=== PATIENT | female | born 1975 | race Caucasian/White ===

== ENCOUNTER 2017-03-19 17:56 | Emergency (ER) | payer MEDICAID, OTHER ==
[~2017-03-19] VITALS: Ht 154.9 cm; Wt 62.8 kg
[2017-03-19 18:08] VITALS: BP 145/92
--- NOTE | 2017-03-19 19:34 | NUR ---
41Y F BIB FAMILY C/O LAC TO LEFT HAND PINKY FINGER X 1730 TODAY. PT STATES SHE WAS CUTTING VEGETABLES AND SLICED HER FINGER. BLEEDING IS CONTROLLED. CMS INTACT. PT DENIES ANY N/V/D, SOB, CP AT THE MOMENT. PT STATES SHE HAD HER LAST TETANUS 3 YEARS AGO. PT STATES PAIN 8/10 PAIN. PT AAOX4.
[2017-03-19] MEDS ORDERED: BACITRACIN OINT 500 UNITS/GM PKT TP ONE ×2 (19:40→19:41)
[2017-03-19] MEDS ORDERED: IBUPROFEN 800 MG TAB PO ONE (19:40)
[2017-03-19 20:04] VITALS: BP 132/81
--- NOTE | 2017-03-19 20:04 | NUR ---
Patient discharged with v/s stable. Written and verbal after care instructions given and explained. Patient alert, oriented and verbalized understanding of instructions. Ambulatory with steady gait. All questions addressed prior to discharge. ID band removed. Patient advised to follow up with PMD. Rx of BACTRIM DS AND MOTRIN 800MG given. Patient educated on indication of medication including possible reaction and side effects. Opportunity to ask questions provided and answered.
== END 2017-03-19 20:04 | disposition home or self-care (01) ==
LOC: MED 17:56
DX: S61.307A Unspecified open wound of left little finger with damage to nail, initial encounter (principal); E11.9 Type 2 diabetes mellitus without complications; I10 Essential (primary) hypertension; W27.8XXA Contact with other nonpowered hand tool, initial encounter; Y93.G1 Activity, food preparation and clean up; Y92.89 Other specified places as the place of occurrence of the external cause; Y99.8 Other external cause status
CPT/HCPCS: 82948; 99283

== ENCOUNTER 2018-12-10 08:40 | Emergency (ER) | payer MEDICAID, OTHER ==
[~2018-12-10] VITALS: Ht 157.5 cm; Wt 58.5 kg
--- NOTE | 2018-12-10 08:54 | NUR ---
Patient ambulated to bed 8 with family. RN evaluating patient at bedside.
[2018-12-10 08:57] VITALS: BP 110/78
--- NOTE | 2018-12-10 09:13 | NUR ---
PT C/O CENTER ABD PAIN 09/22 AND RADIATING TO BILAT FLANKS X 1 DAY AND THIGHS. ACCOMP. BY [employer]. PT DENIES N/V/F. PT IS TACHYCARDIC AT 113 BPM. FAMILY MEMBER AT BEDSIDE. ER MD TO SEE PT. HX: DM, HTN, HLD RX: GLIPIZIDE, LISINOPRIL, METFORMIN, SIMVISTATIN, OMEPRAZOLE
[2018-12-10] MEDS ORDERED: NACL 0.9% 1,000 ML IV SCH (09:21)
[2018-12-10] MEDS ORDERED: FAMOTIDINE 20 MG/2 ML VIAL IVP ONE (09:25)
[2018-12-10] MEDS ORDERED: DIPHENOXYLATE /ATROPINE 2.5 MG TAB PO ONE (09:25)
--- NOTE | 2018-12-10 09:38 | NUR ---
LAB AT BEDSIDE
[2018-12-10 09:45] LABS: BASOPHILS % (AUTO) 0.2 % (0.0-2.0); EOSINOPHILS % (AUTO) 0.3 % (0.0-4.0); HEMATOCRIT 43.4 % (36-48); HEMOGLOBIN 14.7 g/dL (12.0-16.0); LYMPHOCYTES # (AUTO) 0.5 K/uL (2.5-16.5); LYMPHOCYTES % (AUTO) 5.9 % (20.5-51.1); MEAN CORPUSCULAR HEMOGLOBIN 33 pg (27-31); MEAN CORPUSCULAR HGB CONC 34 g/dL (33-37); MEAN CORPUSCULAR VOLUME 96.4 fL (80-94); MONOCYTES # (AUTO) 0.2 K/uL (0.8-1.0); MONOCYTES % (AUTO) 2.3 % (1.7-9.3); NEUTROPHILS # (AUTO) 8.2 K/uL (1.8-7.7); NEUTROPHILS % (AUTO) 91.3 % (42.2-75.2); PLATELET COUNT (AUTO) 223 K/uL (140-450); RED BLOOD CELL COUNT(AUTO) 4.49 MIL/uL (4.20-5.40); RED CELL DISTRIBUTION WIDTH 12.9 % (11.6-13.7)
[2018-12-10 09:49] LABS: APPEARANCE,URINE HAZY (CLEAR); BILIRUBIN,URINE NEGATIVE (NEGATIVE); BLOOD, URINE NEGATIVE (NEGATIVE); COLOR,URINE YELLOW (YELLOW); LEUKOCYTE ESTERASE ,URINE 2+ (NEGATIVE); NITRITE, URINE NEGATIVE (NEGATIVE); UGLUCOSE NEGATIVE (NEGATIVE)
[2018-12-10 09:57] LABS: ANION GAP 14.9 (8-16); CARBON DIOXIDE 27.1 mmol/L (21-32); CREATININE 0.7 mg/dL (0.6-1.3)
[2018-12-10 09:59] LABS: RBC,URINE 0-5 /HPF (0-5)
[2018-12-10 10:03] LABS: ALBUMIN 3.9 g/dL (3.4-5.0); TOTAL BILIRUBIN 0.6 mg/dL (0.0-1.0)
--- NOTE | 2018-12-10 10:04 | NUR ---
ULTRASOUND AT [facility].
--- NOTE | 2018-12-10 10:13 | NUR ---
Janice alegria in [facility] - 12/10/18 at 1014 by [email or web address] u/s at bedside
--- NOTE | 2018-12-10 11:51 | NUR ---
Patient discharged with v/s stable. Written and verbal after care instructions given and explained. Patient alert, oriented and verbalized understanding of instructions. Ambulatory with steady gait. All questions addressed prior to discharge. ID band removed. Patient advised to follow up with PMD. Rx of LOMOTIL given. Patient educated on indication of medication including possible reaction and side effects. Opportunity to ask questions provided and answered.
[2018-12-10 11:52] VITALS: BP 110/78
== END 2018-12-10 11:51 | disposition home or self-care (01) ==
LOC: MED 08:40
DX: R10.12 Left upper quadrant pain (principal); R10.13 Epigastric pain; R19.7 Diarrhea, unspecified; E11.9 Type 2 diabetes mellitus without complications; I10 Essential (primary) hypertension; E78.5 Hyperlipidemia, unspecified; Z98.890 Other specified postprocedural states
CPT/HCPCS: 36415; 76705; 80053; 81001; 83690; 85025; 87086; 96361; 96374; 99284; J3490; J7030; Q0092; 81025

== ENCOUNTER 2023-05-14 10:56 | Emergency (ER) | payer MEDICAID ==
[~2023-05-14] VITALS: Ht 157.5 cm; Wt 59.0 kg
[2023-05-14 11:34] VITALS: BP 125/75; PULSE 109; RESP 17; O2SAT 98
[2023-05-14] MEDS: IBUPROFEN 600 MG TAB PO ONE (12:25)
[2023-05-14] MEDS ORDERED: ACET-8905 PO (14:16)
[2023-05-14] MEDS ORDERED: IBUP-2213 PO (14:16)
[2023-05-14 14:30] VITALS: BP 122/82; PULSE 88; RESP 17; TEMP 98; O2SAT 99
== END 2023-05-14 14:30 | disposition home or self-care (01) ==
LOC: MED 10:56
DX: S82.891A Other fracture of right lower leg, initial encounter for closed fracture (principal); E11.9 Type 2 diabetes mellitus without complications; K21.9 Gastro-esophageal reflux disease without esophagitis; I10 Essential (primary) hypertension; Z79.4 Long term (current) use of insulin; Z79.899 Other long term (current) drug therapy; W01.198A Fall on same level from slipping, tripping and stumbling with subsequent striking against other object, initial encounter; Y93.89 Activity, other specified; Y92.89 Other specified places as the place of occurrence of the external cause; Y99.8 Other external cause status
CPT/HCPCS: 29515; 73610; 99283